=== PATIENT | male | born 1940 | race Caucasian/White ===

== ENCOUNTER → 2017-02-10 | Outpatient (CLI) | payer OTHER, BC | END | disposition home or self-care (01) | LOC: C.LABSPEC 13:11 | PROVIDERS: ATTEND Family Medicine | DX: R39.15 Urgency of urination (principal) ==

== ENCOUNTER 2019-01-14 13:42 | Inpatient (IN) ==
[2019-01-14 14:23] LABS: Basophils # (auto) 0.01 K/uL (0-0.2); Basophils % (auto) 0.1 %; Eosinophils # (auto) 0.04 K/uL (0-0.5); Eosinophils % (auto) 0.5 %; Hemoglobin 13.8 g/dL (14.0-18.0); Immature Granulocytes # (auto) 0.06 K/uL (0.00-0.02); Immature Granulocytes % (auto) 0.7 %; Lymphocytes # (auto) 1.26 K/uL (1.2-3.4); Lymphocytes % (auto) 15.7 %; Mean Corpuscular Hemoglobin 30.7 pg (25-34); Mean Corpuscular Hgb Conc 33.7 g/dL (32-36); Mean Corpuscular Volume 91.3 fL (80-100); Mean Platelet Volume 10.6 fL (7.4-10.4); Monocytes # (auto) 1.39 K/uL (0.11-0.59); Monocytes % (auto) 17.3 %; Neutrophils # (auto) 5.29 K/uL (1.4-6.5); Neutrophils % (auto) 65.7 %; Platelet Count 139 K/uL (130-400); RDW Coefficient of Variation 12.8 % (11.5-14.5); Red Blood Count 4.49 M/uL (4.7-6.1); White Blood Count 8.05 K/uL (4.8-10.8)
[2019-01-14 14:44] LABS: Albumin Level 3.3 gm/dl (3.4-5.0); BUN Creatinine Ratio 11.4 (10-20); Calcium 9.1 mg/dl (8.5-10.1); Creatinine Clr Calc Pharmacy 30.6 ml/min; Est GFR (African American) 33.4; Est GFR (Non-African American) 28.8; Potassium 4.4 mmol/L (3.5-5.1)
[2019-01-14 14:47] LABS: Albumin Globulin Ratio 0.8 (0.9-2); Bilirubin,Total 0.6 mg/dl (0.2-1); Globulin 4.2 gm/dl (2.5-4.0); Total Protein 7.5 gm/dl (6.4-8.2)
[2019-01-14 15:05] LABS: Appearance Urine Cloudy (Clear); Bacteria Urine Automated Negative (Negative); Bilirubin Urine Negative (Negative); Blood Urine 2+ (Negative); Color Urine Yellow; Epithelial Cell Urine Auto >30 /lpf (0-5); Glucose Urine UA Trace (Negative); Ketones Urine Negative (Negative); Leukocyte Esterase Urine 1+ (Negative); Nitrite Urine Negative (Negative); Protein Urine Trace (Negative); RBC Urine Automated 0-4 /hpf (0-4); Specific Gravity Urine 1.021 (1.000-1.030); Urobilinogen Urine Negative (Negative)
--- NOTE | 2019-01-14 16:02 | CT Scan Report ---
CT SCAN OF THE ABDOMEN AND PELVIS WITHOUT IV CONTRAST CLINICAL HISTORY: Left lower quadrant abdominal pain. COMPARISON STUDY: No priors. TECHNIQUE: CT scan of the abdomen and pelvis is performed from the lung bases to the proximal femora. Images are reviewed in the axial, sagittal, and coronal planes. IV contrast was not administered for this examination as per the referring clinician. A dose lowering technique was utilized adhering to the principles of ALARA. CT DOSE: 829.12 mGycm FINDINGS: Lung bases: The heart is normal in size and without pericardial effusion. There are coronary artery c alcifications. A calcified granuloma is noted at the right lung base. The lung bases are otherwise cl ear noting dependent atelectasis. There is a small hiatal hernia. Liver: The unenhanced liver is normal in size, contour, and attenuation. There is no intrahepatic alanna iary ductal dilatation. A subcentimeter hypodensity in the right lobe seen on image #117 and likely r epresents a cyst but is too small for definitive characterization. Gallbladder: Unremarkable. Spleen: Normal in size and attenuation. Pancreas: The unenhanced pancreas is moderately atrophic and grossly unremarkable. Adrenal glands: Unremarkable. Kidneys: The unenhanced kidneys demonstrate cortical atrophy. There are 4 obstructing calculus identi fied within the mid left ureter at the level of L4, best seen on image #221. The largest 2 stones eac h measure 11 mm. These cause moderate to severe left hydroureteronephrosis. There are least 2 nonobs tructing calculi in the lower pole of the left kidney which measure up to 8mm. There are 3.1 and 2.3 cm nonobstructing calculi present in the right kidney. There are at least 3 additional subcentimeter right renal calculi. There is no right-sided hydronephrosis. Parapelvic cysts are suggested on the ri ght. A 6 cm exophytic cyst arises from the lower pole of the left kidney. Abdominal vasculature: The abdominal aorta is normal in course and caliber noting moderate to advance d atherosclerotic calcification. Bowel: There is moderate colonic diverticulosis without CT evidence of acute diverticulitis. Colonic fecal retention is observed. No bowel obstruction is seen. The appendix is well-visualized and estella l. Peritoneum: There is no intraperitoneal free air or abdominal ascites. A calcified lymph node is sugg ested in the left lower quadrant image #304. Lymphadenopathy: None. Pelvic viscera: The the prostate gland is mildly enlarged and heterogeneous. The bladder wall is thic kened and trabeculated suggesting chronic outlet obstruction. A large irregular bladder calculus mayra ures 3.7 x 3.5 cm Skeletal structures: The skeletal structures are osteopenic. There is moderate lumbosacral spondylosi s. Degenerative change is noted in the sacroiliac joints. No lytic or blastic lesions are seen. IMPRESSION: 1. There are at least 4 obstructing calculi in the mid left ureter (the largest 2 stones each measure 11 mm) at the level of L4. This causes moderate to severe left hydroureteronephrosis. 2. There are additional nonobstructing calculi seen bilaterally, with staghorn calculi noted on the r ight. 3. Moderate colonic diverticulosis without CT evidence of acute diverticulitis. 4. There is a large bladder calculus. 5. Additional findings as above. Electronically signed by: Leonardo Patterson M.D. 01/14/2019 4:01 PM
[2019-01-14] MEDS ORDERED: SODIUM CHLORIDE 0.9% 1000ML 1,000 ML IV SCH (16:45)
[2019-01-14] MEDS ORDERED: OXYCODONE HCL IR 5 MG TAB (IMMEDIATE RELEASE) PO STA (17:31)
--- NOTE | 2019-01-14 17:43 | History & Physical Report ---
Date of Service January 14, 2019 Assessment & Plan (1) Hydronephrosis concurrent with and due to calculi of kidney and ureter: (2) Acute renal failure: Pt is 78 y/o M with PMH kidney stones and lithotripsy, DM II, GERD, stroke presented to ER with c/o intermittent lower abdominal pain x 2 months Pt afebrile, P: 94, BP: 124/72, 94% on RA. No leukocytosis. BUN: 25, Cr: 2.1, (baseline Cr: 1.2), GFR: 28. UA consistent with possible UTI -Urine cultures pending -Blood cultures pending -Rocephin -IVF -NPO midnight -Dose oxycodone now -Morphine prn pain -Avoid NSAIDs and other nephrotoxic agents -Monitor renal functions -Urology consult - ER consulted and plan to take pt to OR tomorrow morning -CBC, BMP in am (3) Diabetes mellitus, type II: A1c: 6.9 in 10/2018 -Hold metformin -Novolog sliding scale per protocol -Monitor BSGs (4) GERD (gastroesophageal reflux disease): -Continue PPI (5) Stroke: -Continue aspirin post op DVT Prophylaxis -SCDs Full Code as per discussion with pt Follows with Dr Rolando Joseph for routine care Pt was seen and care coordinated with Dr Allen. See addendum History of Present Illness Chief Complaint: Abdominal pain Primary Care Provider: Nic Harley Pt is 78 y/o M with PMH kidney stones and lithotripsy, DM II, GERD, stroke presented to ER with c/o lower abdominal pain x 2 months. Pt c/o intermittent lower abdominal pain for past 2 months. States today was tired of the pain so came to be evaluated. Has been using 1 tab ibuprofen 2-3 times a week for the pain. Denies fever/chills, diaphoresis, N/V/D/C, COFFEY, dizziness, syncope, vision changes, neck pain, CP, SOB, orthopnea, palpitations, cough, sore throat, choking, otalgia, rhinorrhea, back pain, paresthesias, weakness, extremity weakness, extremity edema, rashes, dysuria, hematuria, urinary retention, u rinary frequency. Allergies Allergy/AdvReac Type Severity Reaction Status Date / Time lactose AdvReac Gastrointestinal Unverified 01/14/19 15:43 Upset Home Medications Home Medications Medication Instructions Recorded Confirmed Type aspirin 81 mg PO DAILY 01/14/19 01/14/19 History metformin 500 mg PO BIDM 01/14/19 01/14/19 History omeprazole 20 mg PO DAILY 01/14/19 01/14/19 History Past Med/Surg History Medical History Diverticulosis (Chronic) Kidney stones (Chronic) Stroke (Chronic) GERD (gastroesophageal reflux disease) (Chronic) Diabetes mellitus, type II (Chronic) Surgical History History of tonsillectomy and adenoidectomy (Chronic) Family History Father Colorectal cancer Social History Feels Safe at Home: Yes Smoking Status: Never smoker Hx Alcohol Use: No Hx Substance Use: No Review of Systems Review of Systems: All systems reviewed & are unremarkable except as noted in HPI & below Physical Exam Physical Exam: General: no distress, WDWN Head: normocephalic, atraumatic Eyes: PERRL, EOM's intact, conjunctiva non-injected, anicteric ENT: normal inspection external ears, nose, mucous membranes moist Neck: supple, trachea midline Lungs: clear, no respiratory distress, no wheezing/rhonchi/rales CV: RRR, no murmur, no pretibial edema Abd: normal BS, soft, + tenderness to RLQ, LLQ, suprapubic Ext: no cyanosis, no calf tenderness Neuro: A&O x 3, no focal deficits noted, normal affect Skin: warm, dry Results & Data Vital Signs (Past 12 Hours) Vital Signs Temp Pulse Pulse Resp BP BP Pulse Ox 01/14/19 16:00 94 H 21 124/72 94 01/14/19 14:50 91 H 22 132/73 96 01/14/19 13:46 37.3 C 100 H 18 125/68 99 Laboratory Results Short CBC 01/14/19 Range/Units 14:13 WBC 8.05 (4.8-10.8) K/uL Hgb 13.8 L (14.0-18.0) g/dL Hct 41.0 L (42-52) % Plt Count 139 (130-400) K/uL BMP 01/14/19 14:13 Sodium 137 Potassium 4.4 Chloride 106 Carbon Dioxide 25 BUN 25 H Creatinine 2.14 H Glucose 118 H Calcium 9.1 Liver Function 01/14/19 Range/Units 14:13 Total Bilirubin 0.6 (0.2-1) mg/dl AST 17 (15-37) U/L ALT 18 (12-78) U/L Alkaline Phosphatase 86 (45-117) U/L Albumin 3.3 L (3.4-5.0) gm/dl Urine 01/14/19 Range/Units 14:50 Urine Color Yellow Urine Appearance Cloudy A (Clear) Urine pH 5.0 (4.5-7.5) Ur Specific [place] 1.021 (1.000-1.030) Urine Protein Trace H (Negative) Urine Glucose (UA) Trace H (Negative) Diagnostic Findings CT ABD/PELVIS: IMPRESSION: 1. There are at least 4 obstructing calculi in the mid left ureter (the largest 2 stones each measure 11 mm) at the level of L4. This causes moderate to severe left hydroureteronephrosis. 2. There are additional nonobstructing calculi seen bilaterally, with staghorn calculi noted on the right. 3. Moderate colonic diverticulosis without CT evidence of acute diverticulitis. 4. There is a large bladder calculus. 5. Additional findings as above. ECG Rate (beats per minute): 95 Rhythm: sinus rhythm Findings: + 1st degree AV block Code Status & VTE Plan VTE Prophylaxis Plan VTE Prophylaxis will be ordered: Yes Supervising Physician Co-Signing Physician Notes I saw this patient with the physician programs assistant, I participated in the history, physical, review of systems, and physical exam. I reviewed the medications with the patient and the physician programs assistant and helped reconcile the medications. I helped take a detailed family and social history as well. I formulated the assessment and plan personally with the physician programs assistant and went over it with the patient. Physical Exam Gen-AAO x 3, NAD, Afebrile Head-NCAT, EOMI, PERRLA, Anicteric Sclera, No Posterior Pharyngeal Erythema Neck-Supple, No JVD, No Thyromegaly, No Masses, No LAD, No Bruits Lungs-Clear to Auscultation Bilaterally, No Rales, No Rhonchi, No Wheezing, No Crepitus Chest-No S4, +S1, +S2, No S3, No Murmurs, No Rubs, No Gallops, No Ectopy Abdomen-Soft, Bowel Sounds Present, Non Tender, Non Distended, No Hepatomegaly, No Splenomegaly, No Palpable Masses, No Rebound, No Rigidity, No Guarding Musculoskeletal-Full Range of Motion Bilaterally, No CVAT Extremities-No Cyanosis, No Clubbing, No Edema Nuero-Cranial Nerves II-XII grossly intact, Motor WNL, DTRs WNL, Strength WNL, Non Focal Psych-Normal Mood (1) Acute renal failure Acute renal failure type: unspecified Qualified Code(s): N17.9 - Acute kidney failure, unspecified
--- NOTE | 2019-01-14 17:57 | Emergency Department Note ---
Entered by Kamlesh Lux acting as a scribe for Reinaldo Hein MD ED Provider Note CHIEF COMPLAINT: Abdominal Pain HISTORY OF PRESENT ILLNESS: The patient is a 78 year old male who presents to the Emergency Room with complaints of waxing and waning abdominal pain over the past two months. The patient states he has diverticulosis, and he states that his PCP thinks that the patient's present abdominal pain stems from the patient's diverticulosis. The patient believes he may have diverticulitis. The patient rates the abdominal pain as a 4/10. The patient states the abdominal pain is not worsened with movement, bending over, or with coughing and sneezing. The of the patient notes that certain foods make the patient's abdominal pain worse, and the states that when the abdominal pain gets bad for the patient, the patient's face becomes pale and yellow. The patient also states his stomach feels bloated, and he notes he has been belching a lot lately. The patient also states that his urine flow has been good, but he states that when he has to go, he has to go quick. The patient also notes he has been urinating often. The patient reports that he was told trace amounts of blood was found in a urine sample he gave to his PCP on January 06. The patient notes his last colonoscopy was 2-5 years ago. Pt denies LOC, headache, fevers, chills, diaphoresis, visual changes, neck pain, chest pain, breathing difficulties, nausea, vomiting, back pain, melena, hematochezia, numbness, weakness, lymphadenopathy, rash, or other complaints. REVIEW OF SYSTEMS: See HPI for pertinent positives and negatives. A total of ten systems were reviewed and were otherwise negative. PMHx/PSHx: Diverticulosis Kidney Stone SOCIAL HISTORY: Patient lives at home. PHYSICAL EXAM: GENERAL: Awake, alert, well-appearing, in no distress HENT: Normocephalic, atraumatic. Oropharynx unremarkable. EYES: PERRL. Normal conjunctiva. Sclera non-icteric. NECK: Inspection normal. Non-tender. Supple. No nuchal rigidity. FROM. No masses. RESPIRATORY: Clear to auscultation. No wheezes. No rales. Normal respiratory effort. CARDIAC: Normal rate. Normal rhythm. No murmurs. No rubs. Extremities warm and well perfused. Pulses equal. No JVD. GI: Soft, non-distended. Mild right lower quadrant and moderate left lower quadrant tenderness to palpation. No rebound or guarding. No masses. RECTAL: Deferred. MUSCULOSKELETAL: Atraumatic. Chest examination reveals no tenderness. The back is symmetrical on inspection without obvious abnormality. There is no CVA tenderness to palpation. No joint edema. LOWER EXTREMITIES: Calves are equal size bilaterally and non-tender. No edema. No discoloration. NEURO: Normal sensorium. No sensory or motor deficits noted. SKIN: No rash or jaundice noted. EMERGENCY DEPARTMENT COURSE: 1417: Past medical records reviewed. The patient was evaluated in room A12B, and a complete history and physical examination were performed. 1637: I discussed the patient's case with Dr. Morillo-Urology. Dr. Morillo recom mended admission, hydration, preoperative evaluation, and he states he will take the patient to the OR tomorrow. 1643: I updated the patient on his case. 1649: I reviewed the patient's case with Jessica Forde-L[facility] Conti. [facility] the patient. MEDICAL DECISION MAKING: Prior records/ancillary studies reviewed. Triage Nursing notes reviewed and agree them. Additional history obtained from the family. The patient's history was concerning for flank and abdominal pain. Differential diagnosis: Etiologies such as renal colic, appendicitis, diverticulitis, mesenteric ischemia, aortic pathology, infections, inflammatory bowel disease, PUD, biliary pathology, UTI, as well as others were entertained. Physical examination findings: As above. ER treatment provided: Patient declined analgesia Normal saline hydration On reassessment the patient felt better. Diagnostic interpretation by me: The labs revealed an unremarkable CBC. Chemistry panel did reveal an elevated creatinine concerning for acute renal failure. Urinalysis revealed hematuria. There was no sign of UTI. Imaging studies: CT scan of pelvis was performed. The patient has multiple left ureteral stones. He has a bladder stone as well as a right renal stone. Consultation: A consultation was placed with Dr. Morillo of urology. He recommended having the patient come into the hospital, be hydrated, made n.p.o. after midnight and he will see the patient for operative treatment tomorrow. A consultation was placed with the hospitalist. The case was discussed and diagnostics were reviewed. The patient was evaluated in the ER for further treatment. IMPRESSION: Left sided abdominal pain Left ureterolithiasis Hydronephrosis Right nephrolithiasis Bladder calculus Acute renal failure PLAN: Being evaluated by hospitalist. The scribe's documentation has been prepared under my direction and personally reviewed by me in its entirety. I confirm that the note above accurately reflects all work, treatment, procedures, and medical decision making performed by me. Impression & Plan Left sided abdominal pain, Ureterolithiasis, Hydronephrosis, Right nephrolithiasis, Bladder calculus, Acute renal failure Past Med/Surg History Medical History Diverticulosis (Chronic) Kidney stones (Chronic) Stroke (Chronic) GERD (gastroesophageal reflux disease) (Chronic) Diabetes mellitus, type II (Chronic) Surgical History History of tonsillectomy and adenoidectomy (Chronic) Family History Father Colorectal cancer Social History Feels Safe at Home: Yes Smoking Status: Never smoker Hx Alcohol Use: No Hx Substance Use: No Results & Data Vital Signs Vital Signs - 24 hr 01/14/19 13:46 01/14/19 14:50 01/14/19 16:00 Temperature 37.3 C Temperature Source Oral Sepsis Recent Fever Within 48 Hours No Sepsis New/Unexplained Change in Mental Status No Sepsis Action Taken by Nursing No Action Required Pulse Rate 100 H Pulse Rate [Left Finger] 91 H 94 H Respiratory Rate 18 22 21 Respiratory Effort / Characteristics Non-Labored Spontaneous Respiratory Depth Normal Normal Respiratory Pattern Regular Blood Pressure 125/68 Blood Pressure [Left Arm] 132/73 124/72 Blood Pressure Mean 87 Blood Pressure Mean [Left Arm] 92 89 Blood Pressure Position [Left Arm] Lying Pulse Oximetry 99 96 94 Oxygen Delivery Method Room Air Room Air Room Air Home Medications Current Medication List: was personally reviewed by me Laboratory Data Attestation: I reviewed the patient's lab results. Result diagrams: 01/14/19 14:13 01/14/19 14:13 Lab Results 01/14/19 01/14/19 01/14/19 Range/Units 14:13 14:13 14:50 WBC 8.05 (4.8-10.8) K/uL RBC 4.49 L (4.7-6.1) M/uL Hgb 13.8 L (14.0-18.0) g/dL Hct 41.0 L (42-52) % MCV 91.3 (80-100) fL MCH 30.7 (25-34) pg MCHC 33.7 (32-36) g/dL RDW Std Deviation 43.0 (36.4-46.3) fL RDW Coeff of Opal 12.8 (11.5-14.5) % Plt Count 139 (130-400) K/uL MPV 10.6 H (7.4-10.4) fL Immature Gran % (Auto) 0.7 % Neut % (Auto) 65.7 % Lymph % (Auto) 15.7 % [place] % (Auto) 17.3 % Eos % (Auto) 0.5 % Baso % (Auto) 0.1 % Immature Gran # (Auto) 0.06 H (0.00-0.02) K/uL Neut # (Auto) 5.29 (1.4-6.5) K/uL Lymph # (Auto) 1.26 (1.2-3.4) K/uL [place] # (Auto) 1.39 H (0.11-0.59) K/uL Eos # (Auto) 0.04 (0-0.5) K/uL Baso # (Auto) 0.01 (0-0.2) K/uL Sodium 137 (136-145) mmol/L Potassium 4.4 (3.5-5.1) mmol/L Chloride 106 (98-107) mmol/L Carbon Dioxide 25 (21-32) mmol/L Anion Gap 6.0 (3-11) BUN 25 H (7-18) mg/dl Creatinine 2.14 H (0.6-1.4) mg/dl Est Cr Clr Drug Dosing 30.6 ml/min Est GFR ( Amer) 33.4 Est GFR (Non-Af Amer) 28.8 BUN/Creatinine Ratio 11.4 (10-20) Glucose 118 H (70-99) mg/dl Calcium 9.1 (8.5-10.1) mg/dl Total Bilirubin 0.6 (0.2-1) mg/dl AST 17 (15-37) U/L ALT 18 (12-78) U/L Alkaline Phosphatase 86 (45-117) U/L Total Protein 7.5 (6.4-8.2) gm/dl Albumin 3.3 L (3.4-5.0) gm/dl Globulin 4.2 H (2.5-4.0) gm/dl Albumin/Globulin Ratio 0.8 L (0.9-2) Lipase 139 (73-393) U/L Urine Color Yellow Urine Appearance Cloudy A (Clear) Urine pH 5.0 (4.5-7.5) Ur Specific [place] 1.021 (1.000-1.030) Urine Protein Trace H (Negative) Urine Glucose (UA) Trace H (Negative) Urine Ketones Negative (Negative) Urine Blood 2+ H (Negative) Urine Nitrite Negative (Negative) Urine Bilirubin Negative (Negative) Urine Urobilinogen Negative (Negative) Ur Leukocyte Esterase 1+ H (Negative) Urine WBC (Auto) 10-30 H (0-5) /hpf Urine RBC (Auto) 0-4 (0-4) /hpf U Hyaline Cast (Auto) 1-5 (0-5) /lpf U Epithel Cells (Auto) >30 H (0-5) /lpf Urine Bacteria (Auto) Negative (Negative) Ur Renal Epithelial Cell 5-10 H (0-5) /lpf Administered Medications Sodium Chloride (Nss 1000ml) 1,000 mls @ 125 mls/hr IV .Q8H KATELYNN Stop: 02/13/19 16:44 Last Admin: 01/14/19 16:44 Dose: 125 mls/hr Documented by: [id number] Imaging Data Radiologist's Impression: Radiology results as stated below per my review and the radiologist's interpretation: CT SCAN OF THE ABDOMEN AND PELVIS WITHOUT IV CONTRAST CLINICAL HISTORY: Left lower quadrant abdominal pain. COMPARISON STUDY: No priors. TECHNIQUE: CT scan of the abdomen and pelvis is performed from the lung bases to the proximal femora. Images are reviewed in the axial, sagittal, and coronal planes. IV contrast was not administered for this examination as per the referring clinician. A dose lowering technique was utilized adhering to the principles of ALARA. CT DOSE: 829.12 mGycm FINDINGS: Lung bases: The heart is normal in size and without pericardial effusion. There are coronary artery calcifications. A calcified granuloma is noted at the right lung base. The lung bases are otherwise clear noting dependent atelectasis. There is a small hiatal hernia. Liver: The unenhanced liver is normal in size, contour, and attenuation. There i s no intrahepatic biliary ductal dilatation. A subcentimeter hypodensity in the right lobe seen on image #117 and likely represents a cyst but is too small for definitive characterization. Gallbladder: Unremarkable. Spleen: Normal in size and attenuation. Pancreas: The unenhanced pancreas is moderately atrophic and grossly unremarkable. Adrenal glands: Unremarkable. Kidneys: The unenhanced kidneys demonstrate cortical atrophy. There are 4 obstructing calculus identified within the mid left ureter at the level of L4, best seen on image #221. The largest 2 stones each measure 11 mm. These cause moderate to severe left hydroureteronephrosis. There are least 2 nonobstructing calculi in the lower pole of the left kidney which measure up to 8mm. There are 3.1 and 2.3 cm nonobstructing calculi present in the right kidney. There are at least 3 additional subcentimeter right renal calculi. There is no right-sided hydronephrosis. Parapelvic cysts are suggested on the right. A 6 cm exophytic cyst arises from the lower pole of the left kidney. Abdominal vasculature: The abdominal aorta is normal in course and caliber noting moderate to advanced atherosclerotic calcification. Bowel: There is moderate colonic diverticulosis without CT evidence of acute diverticulitis. Colonic fecal retention is observed. No bowel obstruction is seen. The appendix is well-visualized and normal. Peritoneum: There is no intraperitoneal free air or abdominal ascites. A calcified lymph node is suggested in the left lower quadrant image #304. Lymphadenopathy: None. Pelvic viscera: The the prostate gland is mildly enlarged and heterogeneous. The bladder wall is thickened and trabeculated suggesting chronic outlet obstruction. A large irregular bladder calculus measures 3.7 x 3.5 cm Skeletal structures: The skeletal structures are osteopenic. There is moderate lumbosacral spondylosis. Degenerative change is noted in the sacroiliac joints. No lytic or blastic lesions are seen. IMPRESSION: 1. There are at least 4 obstructing calculi in the mid left ureter (the largest 2 stones each measure 11 mm) at the level of L4. This causes moderate to severe left hydroureteronephrosis. 2. There are additional nonobstructing calculi seen bilaterally, with staghorn calculi noted on the right. 3. Moderate colonic diverticulosis without CT evidence of acute diverticulitis. 4. There is a large bladder calculus. 5. Additional findings as above. Electronically signed by: Leonardo Patterson M.D. 01/14/2019 4:01 PM ECG Data Attestation: I personally reviewed and interpreted this ECG as follows: Indication: abdominal pain Rate (beats per minute): 95 Rhythm: sinus rhythm Findings: + 1st degree AV block; no PAC, no PVC, no ST depression and no ST elevation Blood Pressure Blood Pressure Findings: Elevated blood pressure Blood Pressure Disposition: elevated BP felt to be situational Discharge Plan Visit Data Chief Complaint: Abdominal Pain Stated Complaint: WEIGHT LOSS, LOWER ABDOMINAL PAIN ED Provider: Reinaldo Hein Discharge Problem: Left sided abdominal pain, Ureterolithiasis, Hydronephrosis, Right nephrolithiasis, Bladder calculus, Acute renal failure Patient Disposition: Being Evaluated by Hospitalist Forms Stand Alone Forms: Call Back Authorization, [facility] Prescriptions Prescriptions: No Action omeprazole 20 mg capsule,delayed release(DR/EC) 20 mg PO DAILY RF: 0 metformin 500 mg tablet extended release 24 hr 500 mg PO BIDM RF: 0 aspirin 81 mg Tablet,Delayed Release (Dr/Ec) 81 mg PO DAILY RF: 0 Referrals Referrals: Nic Harley DO [Primary Care Provider] - Discharge Problem: Hydronephrosis Qualifiers: Hydronephrosis type: unspecified Qualified Code(s): N13.30 - Unspecified hydronephrosis Acute renal failure Qualifiers: Acute renal failure type: unspecified Qualified Code(s): N17.9 - Acute kidney failure, unspecified The scribe's documentation has been prepared under my direction and personally reviewed by me in its entirety. I confirm that the note above accurately reflects all work, treatment, procedures, and medical decision making performed by me.
[2019-01-14] MEDS ORDERED: GLUCOSE 40% GEL 15 GM TUBE PO PRN (19:03)
[2019-01-14] MEDS ORDERED: DEXTROSE 50% 50 ML SYRINGE IV PRN (19:03)
[2019-01-14] MEDS ORDERED: TAMSULOSIN HCL 0.4 MG CAP PO ONE (19:03)
[2019-01-14] MEDS ORDERED: CARBOHYDRATES FOR HYPOGLYCEMIA PO PRN (19:03)
[2019-01-14] MEDS ORDERED: ONDANSETRON INJ 2 MG/ML 2 ML VIAL IV PRN (19:03)
[2019-01-14] MEDS ORDERED: GLUCOSE 10 TABS/TUBE PO PRN (19:03)
[2019-01-14] MEDS ORDERED: GLUCAGON FOR INJ 1 MG VIAL SQ PRN (19:03)
[2019-01-14] MEDS ORDERED: MoRPHine SULFATE 2 MG/ML CARP IV PRN (19:03)
[2019-01-14] MEDS ORDERED: SODIUM CHLORIDE 0.9% 500 ML IV SCH (19:03)
[2019-01-14] MEDS: cefTRIAXone SODIUM 2,000 MG in DEXTROSE 5% 50 ML IV SCH (20:19)
[2019-01-14] MEDS ORDERED: INSULIN ASPART 100 UNITS/ML 3 ML PEN SC SCH (21:00)
[2019-01-14] MEDS ORDERED: HYDROmorphone INJ 0.5 MG/0.5 ML SYR IV PRN (21:56)
[2019-01-14] MEDS: OXYCODONE HCL IR 5 MG TAB (IMMEDIATE RELEASE) PO PRN (23:14)
[2019-01-14] MEDS ORDERED: Nursing to Pharmacy Communication ONE (23:58)
[2019-01-15] MEDS ORDERED: D5W AND NSS 1,000 ML IV SCH
[2019-01-15 05:24] LABS: Hematocrit (blood only) 35.1 % (42-52); Mean Corpuscular Hemoglobin 30.6 pg (25-34); Mean Corpuscular Hgb Conc 34.2 g/dL (32-36); Mean Corpuscular Volume 89.5 fL (80-100); Mean Platelet Volume 9.9 fL (7.4-10.4); Platelet Count 118 K/uL (130-400); RDW Coefficient of Variation 12.7 % (11.5-14.5); RDW Standard Deviation 41.1 fL (36.4-46.3); Red Blood Count 3.92 M/uL (4.7-6.1); White Blood Count 7.85 K/uL (4.8-10.8)
[2019-01-15 05:44] LABS: BUN Creatinine Ratio 10.6 (10-20); Calcium 8.3 mg/dl (8.5-10.1); Creatinine Clr Calc Pharmacy 28.6 ml/min; Est GFR (African American) 30.8; Est GFR (Non-African American) 26.5; Potassium 4.9 mmol/L (3.5-5.1)
[2019-01-15] MEDS ORDERED: INSULIN ASPART 100 UNITS/ML 3 ML PEN SC SCH (06:00)
[2019-01-15] MEDS: OXYCODONE HCL IR 5 MG TAB (IMMEDIATE RELEASE) PO PRN (06:06)
[2019-01-15] MEDS ORDERED: CIPROFLOXACIN / D5W 200 MG/100 ML BAG IV SCH (07:00)
[2019-01-15 07:02] LABS: Partial Thromboplastin Ratio 1.1; Partial Thromboplastin Time 30.2 Seconds (21.0-31.0); Prothrombin Time 10.7 Seconds (9.0-12.0)
--- NOTE | 2019-01-15 07:14 | Anesthesiology Consultation ---
Date of Service January 15, 2019 Assessment & Plan (1) Encounter for pre-operative examination: Chart Review Chart Review: Acceptable Risk for Surgery History Surgery Operation Date: 01/15/19 07:30 Proposed Procedures p Cystoscopy, Laser Lithotripsy, Left Ureteral Stent Placement - David Morillo MD Height/Weight Height: 5 ft 8 in Weight: 84.8 kg Allergies Allergy/AdvReac Type Severity Reaction Status Date / Time lactose AdvReac Gastrointestinal Unverified 01/14/19 15:43 Upset Medications Home Medications Medication Instructions Recorded Confirmed Last Taken aspirin 81 mg PO DAILY 01/14/19 01/14/19 01/14/19 metformin 500 mg PO BIDM 01/14/19 01/14/19 01/14/19 omeprazole 20 mg PO DAILY 01/14/19 01/14/19 01/14/19 Active Medications Generic Name Dose Route Start Last Admin Trade Name Freq PRN Reason Stop Dose Admin Dextrose/Sodium Chloride 1,000 mls @ 80 mls/hr 01/15/19 00:00 01/15/19 00:16 D5w And Nss IV 01/15/19 12:29 80 mls/hr .[id number] KATELYNN Administration Ceftriaxone Sodium 2,000 mg/ 70 mls @ 100 mls/hr 01/14/19 20:00 01/14/19 21:01 Dextrose IV 01/24/19 19:59 Infused DAILY@2000 [facility] Infusion Protocol Insulin Aspart 0 units 01/15/19 06:00 01/15/19 06:07 Novolog Flexpen SC 02/14/19 05:59 Not Given Q6 KATELYNN Oxycodone HCl 5 mg 01/14/19 21:58 01/15/19 06:06 Roxicodone Immediate Rel PO 01/28/19 21:57 5 mg Q4H PRN Administration Pain NPO Date Last Intake of Fluids: 01/14/19 Time Last Intake of Fluids: 23:59 Date Last Intake of Solids: 01/14/19 Time Last Intake of Solids: 23:59 Past Medical History Medical History Diverticulosis (Chronic) Kidney stones (Chronic) Stroke (Chronic) GERD (gastroesophageal reflux disease) (Chronic) Diabetes mellitus, type II (Chronic) Anemia Renal failure Thrombocytopenia Past Family History Family History Father Colorectal cancer Past Surgical History Surgical History History of tonsillectomy and adenoidectomy (Chronic) Social History Smoking Status: Never smoker Hx Alcohol Use: No Hx Substance Use: No Physical Exam Vital Signs Last Vital Signs Temp 36.7 C 01/15/19 06:56 Pulse 102 H 01/15/19 06:56 Resp 16 01/15/19 06:56 BP 137/74 01/15/19 06:56 Pulse Ox 95 01/15/19 06:56 Testing Laboratory Results 01/15/19 05:04 01/15/19 05:04 PT 10.7 Seconds (9.0-12.0) 01/15/19 06:36 INR 1.0 (0.9-1.1) 01/15/19 06:36 APTT 30.2 Seconds (21.0-31.0) 01/15/19 06:36 Urine Color Yellow 01/14/19 14:50 Urine Appearance Cloudy (Clear) A 01/14/19 14:50 Urine pH 5.0 (4.5-7.5) 01/14/19 14:50 Ur Specific [place] 1.021 (1.000-1.030) 01/14/19 14:50 Urine Protein Trace (Negative) H 01/14/19 14:50 Urine Glucose (UA) Trace (Negative) H 01/14/19 14:50 Urine Ketones Negative (Negative) 01/14/19 14:50 Urine Nitrite Negative (Negative) 01/14/19 14:50 Ur Leukocyte Esterase 1+ (Negative) H 01/14/19 14:50 Urine WBC (Auto) 10-30 /hpf (0-5) H 01/14/19 14:50 Urine RBC (Auto) 0-4 /hpf (0-4) 01/14/19 14:50 U Hyaline Cast (Auto) 1-5 /lpf (0-5) 01/14/19 14:50 U Epithel Cells (Auto) >30 /lpf (0-5) H 01/14/19 14:50 Urine Bacteria (Auto) Negative (Negative) 01/14/19 14:50 01/15/19 01/14/19 05:56 20:43 POC Glucose 155 H 180 H Electrocardiogram Date: 01/14/19 Findings: + NSR @ (95 first degree AV block)
--- NOTE | 2019-01-15 07:15 | Urology Consultation ---
Date of Consultation January 15, 2019 Assessment & Plan (1) Hydronephrosis concurrent with and due to calculi of kidney and ureter: A/P 78 yo male with R partial staghorn, L ureteral stones and hydro, bladder stone. Findings reviewed with patient. As noted, he will need a likely minimum of 3 surgeries - acutely, we will proceed with a cystoscopy, left retrograde pyelography and stent placement (for likely source of renal insufficiency), will see if we can perform cystolithopaxy today as well. Next, on outpatient coordination will proceed with L uscope to clear L kidney. Finally, will need R PCNL by Dr. Berg for his staghorn calculus. [employer] parts consultant to OR today, risks and benefits reviewed, will proceed with first procedure as noted acutely. Patient vocalizes understanding of the treatment plan, wishes to proceed,consent obtained. (2) Acute renal failure: History of Present Illness Reason for Consultation: Stone disease, renal failure. Attending Physician: Bc Araya MD History of Present Illness 78 yo male, new to our practice with a history of stone disease treated in [place] > 5 years ago. He was aware of a residual R renal stone, was being observed. He was recently referred to Dr. Bernabe in [facility] for evaluation for his stones but presents acutely with abdominal pain. His CT images are personally reviewed - large partial staghorn, nonobstructive in R kidney, L ureteral stones with hydro and 3 cm bladder stone, likely the source of his urgency and SP pain. His Cr is also noted to be elevated, baseline unclear. Patient is pleasant but a poor historian. He is NPO this AM for possible intervention. consult requested for assistance. Denies retention or excessively bothersome LUTS. Allergies Allergy/AdvReac Type Severity Reaction Status Date / Time lactose AdvReac Gastrointestinal Unverified 01/14/19 15:43 Upset Home Medications Home Medications Medication Instructions Recorded Confirmed Type aspirin 81 mg PO DAILY 01/14/19 01/14/19 History metformin 500 mg PO BIDM 01/14/19 01/14/19 History omeprazole 20 mg PO DAILY 01/14/19 01/14/19 History Patient History Medical History Diverticulosis (Chronic) Kidney stones (Chronic) Stroke (Chronic) GERD (gastroesophageal reflux disease) (Chronic) Diabetes mellitus, type II (Chronic) Renal failure Surgical History History of tonsillectomy and adenoidectomy (Chronic) Family History Father Colorectal cancer Social History Preferred Language: Thai Communication Ability: Effective General Farm Hand Required: No Beliefs That Will Affect Care: None Current Living Situation: Spouse Other Information That Helps Us Care for You: No Feels Safe at Home: Yes Safety Concerns: Feels Safe At This Time Smoking Status: Never smoker Hx Alcohol Use: No Hx Substance Use: No Review of Systems Constitutional: no fever and no chills Eyes: no diplopia Ear, Nose, Mouth, Throat: no ear trauma Respiratory: no hemoptysis Cardiovascular: no chest pain Gastrointestinal: + abdominal pain Genitourinary: + urinary frequency Musculoskeletal: + back pain; no muscle weakness Integumentary: no acne and no boil Neurologic: no paralysis Psychiatric: no hopelessness Hematologic / Lymphatic: no lymphadenopathy Allergy / Immunological: no tongue swelling Physical Exam Constitutional: + obese; no acute distress Eyes: eyes not dysmorphic ENMT: Ears: no external ear abnormality Neck: trachea midline; no anterior neck swelling Respiratory: no respiratory distress and does not use accessory muscles Cardiovascular: Vessels: radial pulses present Gastrointestinal (Abdomen): Inspection/Auscultation: abdomen not distended Percussion/Palpation: abdomen soft; abdomen nontender Musculoskeletal: Head/Neck/Chest: normocephalic and neck supple Skin: normal turgor Neurologic: awake; not obtunded Psychiatric: Orientation: oriented x 3 Lymphatic: no lymphadenopathy Results & Data Vital Signs (Past 12 Hours) Vital Signs Temp Pulse Pulse Resp BP Pulse Ox 01/15/19 06:56 36.7 C 102 H 16 137/74 95 01/14/19 23:03 36.8 C 87 18 150/73 H 97 01/14/19 19:16 37.3 C 99 H 18 132/73 98 Laboratory Results Laboratory Results - last 48 hr 01/14/19 01/14/19 01/14/19 14:13 14:13 14:50 WBC 8.05 RBC 4.49 L Hgb 13.8 L Hct 41.0 L MCV 91.3 MCH 30.7 MCHC 33.7 RDW Std Deviation 43.0 RDW Coeff of Opal 12.8 Plt Count 139 MPV 10.6 H Immature Gran % (Auto) 0.7 Neut % (Auto) 65.7 Lymph % (Auto) 15.7 [place] % (Auto) 17.3 Eos % (Auto) 0.5 Baso % (Auto) 0.1 Immature Gran # (Auto) 0.06 H Neut # (Auto) 5.29 Lymph # (Auto) 1.26 [place] # (Auto) 1.39 H Eos # (Auto) 0.04 Baso # (Auto) 0.01 PT INR APTT PTT Ratio Sodium 137 Potassium 4.4 Chloride 106 Carbon Dioxide 25 Anion Gap 6.0 BUN 25 H Creatinine 2.14 H Est Cr Clr Drug Dosing 30.6 Est GFR ( Amer) 33.4 Est GFR (Non-Af Amer) 28.8 BUN/Creatinine Ratio 11.4 Glucose 118 H POC Glucose Calcium 9.1 Total Bilirubin 0.6 AST 17 ALT 18 Alkaline Phosphatase 86 Total Protein 7.5 Albumin 3.3 L Globulin 4.2 H Albumin/Globulin Ratio 0.8 L Lipase 139 Urine Color Yellow Urine Appearance Cloudy A Urine pH 5.0 Ur Specific [place] 1.021 Urine Protein Trace H Urine Glucose (UA) Trace H Urine Ketones Negative Urine Blood 2+ H Urine Nitrite Negative Urine Bilirubin Negative Urine Urobilinogen Negative Ur Leukocyte Esterase 1+ H Urine WBC (Auto) 10-30 H Urine RBC (Auto) 0-4 U Hyaline Cast (Auto) 1-5 U Epithel Cells (Auto) >30 H Urine Bacteria (Auto) Negative Ur Renal Epithelial Cell 5-10 H 01/14/19 01/15/19 01/15/19 20:43 05:04 05:04 WBC 7.85 RBC 3.92 L Hgb 12.0 L Hct 35.1 L MCV 89.5 MCH 30.6 MCHC 34.2 RDW Std Deviation 41.1 RDW Coeff of Opal 12.7 Plt Count 118 L MPV 9.9 Immature Gran % (Auto) Neut % (Auto) Lymph % (Auto) [place] % (Auto) Eos % (Auto) Baso % (Auto) Immature Gran # (Auto) Neut # (Auto) Lymph # (Auto) [place] # (Auto) Eos # (Auto) Baso # (Auto) PT Cancelled INR Cancelled APTT Cancelled PTT Ratio Cancelled Sodium Potassium Chloride Carbon Dioxide Anion Gap BUN Creatinine Est Cr Clr Drug Dosing Est GFR ( Amer) Est GFR (Non-Af Amer) BUN/Creatinine Ratio Glucose POC Glucose 180 H Calcium Total Bilirubin AST ALT Alkaline Phosphatase Total Protein Albumin Globulin Albumin/Globulin Ratio Lipase Urine Color Urine Appearance Urine pH Ur Specific [place] Urine Protein Urine Glucose (UA) Urine Ketones Urine Blood Urine Nitrite Urine Bilirubin Urine Urobilinogen Ur Leukocyte Esterase Urine WBC (Auto) Urine RBC (Auto) U Hyaline Cast (Auto) U Epithel Cells (Auto) Urine Bacteria (Auto) Ur Renal Epithelial Cell 01/15/19 01/15/19 01/15/19 05:04 05:56 06:36 WBC RBC Hgb Hct MCV MCH MCHC RDW Std Deviation RDW Coeff of [place] Plt Count MPV Immature Gran % (Auto) Neut % (Auto) Lymph % (Auto) [place] % (Auto) Eos % (Auto) Baso % (Auto) Immature Gran # (Auto) Neut # (Auto) Lymph # (Auto) [place] # (Auto) Eos # (Auto) Baso # (Auto) PT 10.7 INR 1.0 APTT 30.2 PTT Ratio 1.1 Sodium 136 Potassium 4.9 Chloride 107 Carbon Dioxide 24 Anion Gap 5.0 BUN 24 H Creatinine 2.29 H Est Cr Clr Drug Dosing 28.6 Est GFR ( Amer) 30.8 Est GFR (Non-Af Amer) 26.5 BUN/Creatinine Ratio 10.6 Glucose 161 H POC Glucose 155 H Calcium 8.3 L Total Bilirubin AST ALT Alkaline Phosphatase Total Protein Albumin Globulin Albumin/Globulin Ratio Lipase Urine Color Urine Appearance Urine pH Ur Specific [place] Urine Protein Urine Glucose (UA) Urine Ketones Urine Blood Urine Nitrite Urine Bilirubin Urine Urobilinogen Ur Leukocyte Esterase Urine WBC (Auto) Urine RBC (Auto) U Hyaline Cast (Auto) U Epithel Cells (Auto) Urine Bacteria (Auto) Ur Renal Epithelial Cell PG Care Time/CCT Total # of Minutes Spent Total Time Spent with Patient: Total time spent is greater than 50% in coordination of care (as documented) at patient's floor/unit and/or counseling patient: (1) Acute renal failure Acute renal failure type: unspecified Qualified Code(s): N17.9 - Acute kidney failure, unspecified
[2019-01-15] MEDS ORDERED: fentaNYL citrate 100 MCG/2 ML VIAL IV PRN (07:17)
[2019-01-15] MEDS ORDERED: ATROPINE SULFATE 0.1 MG/ML 10ML SYR IV PRN (07:17)
[2019-01-15] MEDS ORDERED: ONDANSETRON INJ 2 MG/ML 2 ML VIAL IV PRN (07:17)
[2019-01-15] MEDS ORDERED: PROPOFOL IV EMULSION 10 MG/ML 20 ML VIAL IV ONE (07:23)
[2019-01-15] MEDS ORDERED: ONDANSETRON INJ 2 MG/ML 2 ML VIAL ONE (07:23)
[2019-01-15] MEDS ORDERED: DEXAMETHASONE SOD INJ 4 MG/ML VIAL ONE (07:23)
[2019-01-15] MEDS ORDERED: LIDOCAINE HCL 2% 2 ML VIAL/AMP(20MG/ML) INFIL ONE (07:23)
[2019-01-15] MEDS ORDERED: MIDAZOLAM HCL 1 MG/ML 2ML VIAL ONE (07:26)
[2019-01-15] MEDS ORDERED: fentaNYL citrate 100 MCG/2 ML VIAL ONE (07:26)
[2019-01-15] MEDS ORDERED: IOTHALAMATE MEGLUMINE II 17.2% 250 ML VIAL ONE (07:29)
[2019-01-15] MEDS ORDERED: BELLADONNA/OPIUM SUPP 60 MG SUPP PR ONE ×2 (08:11)
[2019-01-15] MEDS ORDERED: PHENAZOPYRIDINE HCL 100 MG TAB PO PRN (10:03)
--- NOTE | 2019-01-15 10:03 | Operative Report ---
PG Post Operative Report Pre & Post Diagnosis Operation Date: 01/15/19 07:30 Pre-Op Diagnosis: Right Renal Stone, Left Ureteral Stone, Bladder Stone, Renal Failure Post-Op Diagnosis: Right Renal Stone, Left Ureteral Stone, Bladder Stone, Renal Failure Anesthesia: General anesthesia with laryngeal mask. Drains left in place: 6 [place] multilength stent on the left-hand side, 22 [place] coud catheter with 10 cc of sterile water in the balloon. Findings: Bladder stone fragmented and removed, good stent position on the left- hand side after completion of case. EBL: 0 I identified the patient and participated in the time-out.: Yes Procedure Operation Date: 01/15/19 07:30 Actual Procedures p Cystoscopy, Left Retrograde Pylography, Laser Cystolithopaxy, Left Ureteral Stent Placement(Left) - David Morillo MD Brief history: Patient is a 78-year-old male with renal failure, left ureteral stones, right partial staghorn calculus and bladder stone. He is being brought to the operating room today for urgent left ureteral stent placement. We will attempt to address his bladder stone at the same time. Please see H&P for further details. He has been covered with cephalosporins by the primary service and ciprofloxacin intraoperatively. SCDs were used for DVT prophylaxis. Procedure: Patient was properly identified and brought into the operative suite after identification of appropriate consent in the chart. General anesthesia with laryngeal mask was initiated and patient was prepped and draped in the standard fashion for this procedure. Full timeout procedure was followed. 22 [place] rigid cystoscope was passed into the bladder under direct visualization bladder was surveyed in its entirety. This demonstrated a very large bladder stone and trabeculated and inflamed bladder. Lateral lobe hypertrophy of the prostate was appreciated. No intravesical tumors or papillary masses were noted. Left-sided ureteral orifice was addressed using an open-ended catheter and retrograde pyelography was performed. This demonstrated a relatively normal ureter up to the level of the proximal ureter where contrast proceeded pro ximally poorly due to obstruction from the patient's stone. Sensor tip wire was advanced up to the level of the left kidney and this was followed by a multilength 6 [place] stent with redundant coils being present both at the level of the kidney and within the bladder. Cystoscope was then removed and a 26 [place] resectoscope was introduced into the bladder under direct visualization using a visual obturator. 600 m laser fiber was passed via a standard bridge and fragmentation of the patient's bladder stone into smaller pieces was performed for approximately 2 hours. This resulted in a large number of small stones which were able to be flushed free throughout the case.'s were sent for both chemical analysis and culture. This was continued until no residual stone fragments were present within the bladder. No significant bladder injuries were appreciated with mild bladder inflammation due to lasering. After this was complete due to the length of the case and amount of stimulation of bladder a Farley catheter was left in place. 22 [place] coud catheter was placed with return of clear pink urine with 10 cc of sterile water in the balloon. This is placed to gravity drainage. Belladonna and opium suppositories provided for additional postoperative analgesia. Anesthesia was reversed and patient was transferred to the recovery room in stable condition. Follow-up CARE: Patient be discharged back up to the floor for further management per the primary service. Trial of void should be feasible tomorrow. Continue antibiotic coverage until cultures return. Care is discussed with the patient's family who vocalized good understanding of the findings and treatment plans Surgeon David Morillo MD Geomorphology Teacher None Estimated Blood Loss 0 Findings Consistent with Post-Op Diagnosis Specimens Bladder stones for chemical analysis and culture. Description of Procedure Cystoscopy, left retrograde pyelography, left ureteral stent placement, cystolitholopaxy of a large bladder stone. I attest to the content of the Intraoperative Record and any orders documented therein. Any exceptions are noted below.
--- NOTE | 2019-01-15 10:13 | Fluoroscopy Report ---
FL retrograde includes kub CLINICAL HISTORY: STENT PLACEMENT COMPARISON STUDY: CT of the abdomen and pelvis January 14, 2019. FLUOROSCOPY TIME: 46 seconds. FLUOROSCOPIC IMAGES: 4 FINDINGS: These images demonstrate a left retrograde exam with placement of a ureteral stent which is appropriately positioned. Calculus within the lower pole of the left kidney is suspected. The left u reteral calculus shown on CT is also likely visualized. IMPRESSION: Fluoroscopic images from left retrograde exam with ureteral stent insertion. Electronically signed by: Chris Black M.D. 01/15/2019 10:10 AM
--- NOTE | 2019-01-15 10:36 | Anesthesiology Progress Note ---
Date of Service January 15, 2019 Anesthesia Post Procedure Vital Signs Vital Signs: Temp Pulse Pulse Pulse Pulse Resp BP 01/15/19 10:25 101 H 16 01/15/19 10:15 109 H 16 01/15/19 10:06 36 C L 103 H 16 01/15/19 06:56 36.7 C 102 H 16 01/14/19 23:03 36.8 C 87 18 01/14/19 19:16 37.3 C 99 H 18 01/14/19 18:00 92 H 18 01/14/19 16:00 94 H 21 01/14/19 14:50 91 H 22 01/14/19 13:46 37.3 C 100 H 18 125/68 BP Pulse Ox 01/15/19 10:25 115/68 97 01/15/19 10:15 117/63 93 01/15/19 10:06 126/66 98 01/15/19 06:56 137/74 95 01/14/19 23:03 150/73 H 97 01/14/19 19:16 132/73 98 01/14/19 18:00 122/67 95 01/14/19 16:00 124/72 94 01/14/19 14:50 132/73 96 01/14/19 13:46 99 Pain Intensity Abdomen: Pain Intensity: 0 Transfer of Care Handoff Completed per policy Notes Mental Status: alert / awake / arousable Patient Amnestic to Procedure: Yes Nausea / Vomiting: adequately controlled Pain: adequately controlled Airway Patency, RR, SpO2: stable & adequate BP & HR: stable & adequate Hydration State: stable & adequate Anesthetic Complications: no major complications apparent
[2019-01-15] MEDS ORDERED: Nursing to Pharmacy Communication ONE (11:20)
[2019-01-15] MEDS: PANTOprazole 40 MG TAB PO SCH (12:05)
[2019-01-15] MEDS: INSULIN ASPART 100 UNITS/ML 3 ML PEN SC SCH ×3 (12:52→21:16)
[2019-01-15] MEDS: FINASTERIDE 5 MG TAB PO SCH (16:29)
--- NOTE | 2019-01-15 16:35 | Hospitalist Progress Note ---
Date of Service January 15, 2019 Assessment & Plan (1) Hydronephrosis concurrent with and due to calculi of kidney and ureter: Moderate to Severe Left Hydroureteronephrosis Present on admission with intermittent lower abdominal pain for the past few weeks History of kidney stones and lithotripsy CT showed at least 4 obstructing calculi in the mid left ureter (the largest 2 stones each measure 11 mm) at the level of L4. This causes moderate to severe left hydroureteronephrosis. There are additional nonobstructing calculi seen bilaterally, with staghorn calculi noted on the right. Urology on board S/P cystoscopy, Left Retrograde Pylography, Laser Cystolithopaxy, Left Ureteral Stent Placement(Left) performed today by Dr. Morillo Bladder stone fragmented and removed by urology this morning Continue IV Rocephin for now Follow up urine cx Continue flomax Continue Morphine, oxycodone and phenazopyridine prn Continue IVF Continue monitor closely (2) Acute renal failure: Due to moderate to Severe Left Hydroureteronephrosis Creatinine on admission 2.1 (Baseline creatinine btw 1.1 to 1.2) Creatinine 2.2 today Continue IVF Avoid nephrotoxic agents Monitor BMP (3) Diabetes mellitus, type II: A1c: 6.9 in 10/2018 Continue to hold metformin Novolog sliding scale per protocol Monitor BS (4) GERD (gastroesophageal reflux disease): Continue PPI (5) Stroke: Will resume aspirin in am DVT Prophylaxis SCD CODE STATUS Full Code Subjective Pt was seen and examined Lying in bed with no distress with family at bedside Pt said that he feels fine He said that he is not having any flank pain He said that he is only has a mild discomfort in his bladder Denies any chest pain, palpitation, dizziness and SOB Physical Exam Physical Exam: General- No acute distress Head- atraumatic Eyes- PERRL, EOMI, ENT- oropharynx clear Neck- supple, no JVD Lungs- clear to auscultation Heart- regular rhythm; no murmur Abdomen- normal bowel sounds, soft, nontender Extremities- no calf tenderness Neuro- alert, oriented x 3; PERRL, EOMI; no facial palsy; no dysarthria Skin- warm & dry Results & Data Vital Signs (Past 12 Hours) Vital Signs Temp Pulse Pulse Resp BP Pulse Ox 01/15/19 14:48 36.8 C 18 118/64 95 01/15/19 13:25 36.8 C 110 H 18 142/74 H 97 01/15/19 12:00 36.6 C 96 H 18 133/75 97 01/15/19 11:30 36.5 C 96 H 18 123/68 97 01/15/19 11:00 36.6 C 102 H 18 113/69 95 01/15/19 10:45 36.3 C L 100 H 16 119/65 95 01/15/19 10:35 36.3 C L 109 H 16 129/65 95 01/15/19 10:25 101 H 16 115/68 97 01/15/19 10:15 109 H 16 117/63 93 01/15/19 10:06 36 C L 103 H 16 126/66 98 01/15/19 06:56 36.7 C 102 H 16 137/74 95 (1) Acute renal failure Acute renal failure type: unspecified Qualified Code(s): N17.9 - Acute kidney failure, unspecified
[2019-01-15] MEDS: cefTRIAXone SODIUM 2,000 MG in DEXTROSE 5% 50 ML IV SCH (20:27)
[2019-01-15] MEDS: TAMSULOSIN HCL 0.4 MG CAP PO SCH (21:16)
[2019-01-16 05:14] LABS: Hematocrit (blood only) 34.7 % (42-52); Hemoglobin 11.7 g/dL (14.0-18.0); Mean Corpuscular Hemoglobin 30.2 pg (25-34); Mean Corpuscular Hgb Conc 33.7 g/dL (32-36); Mean Corpuscular Volume 89.7 fL (80-100); Platelet Count 109 K/uL (130-400); RDW Coefficient of Variation 12.6 % (11.5-14.5); RDW Standard Deviation 41.1 fL (36.4-46.3); Red Blood Count 3.87 M/uL (4.7-6.1); White Blood Count 8.28 K/uL (4.8-10.8)
[2019-01-16 05:50] LABS: BUN Creatinine Ratio 11.6 (10-20); Calcium 8.2 mg/dl (8.5-10.1); Creatinine Clr Calc Pharmacy 40.2 ml/min; Est GFR (African American) 46.4; Potassium 4.3 mmol/L (3.5-5.1)
[2019-01-16] MEDS: PANTOprazole 40 MG TAB PO SCH (08:31)
[2019-01-16] MEDS: FINASTERIDE 5 MG TAB PO SCH (08:31)
[2019-01-16] MEDS: INSULIN ASPART 100 UNITS/ML 3 ML PEN SC SCH ×4 (08:33→20:39)
[2019-01-16] MEDS ORDERED: ASPIRIN 81 MG ECTAB PO SCH (09:00)
--- NOTE | 2019-01-16 13:04 | Hospitalist Progress Note ---
Date of Service January 16, 2019 Assessment & Plan (1) Hydronephrosis concurrent with and due to calculi of kidney and ureter: Moderate to Severe Left Hydroureteronephrosis Present on admission with intermittent lower abdominal pain for the past few weeks History of kidney stones and lithotripsy CT showed at least 4 obstructing calculi in the mid left ureter (the largest 2 stones each measure 11 mm) at the level of L4. This causes moderate to severe left hydroureteronephrosis. There are additional nonobstructing calculi seen bilaterally, with staghorn calculi noted on the right. Urology on board S/P day 1 cystoscopy, Left Retrograde Pylography, Laser Cystolithopaxy, Left Ureteral Stent Placement(Left) performed today by Dr. Morillo Bladder stone fragmented and removed by urology on 01/15/19 Urine cx no growth Will discontinued IV Rocephin Continue flomax and finasteride Will discharge on Keflex x 7 days as per urology Continue Morphine, oxycodone and phenazopyridine prn Advised pt to increase fluid intake while in the hospital to help him urinate Will need to follow with urology Ok from urology standpoint to discharge home Continue monitor closely Urinary retention Due to postop bladder stone removal Urology recommended to place driscoll cath Will discharge home with the driscoll Continue tamsulosin + finasteride indefinitely Follow up with urology outpatient next week (2) Acute renal failure: Due to moderate to Severe Left Hydroureteronephrosis Creatinine on admission 2.1 (Baseline creatinine btw 1.1 to 1.2) Creatinine improved from 2.2 to 1.6 Received IVF Avoid nephrotoxic agents Will check BMP in 1 week (3) Diabetes mellitus, type II: A1c: 6.9 in 10/2018 Continue to hold metformin Novolog sliding scale per protocol Monitor BS (4) GERD (gastroesophageal reflux disease): Continue PPI (5) Stroke: Will resume aspirin once hematuria resume DVT Prophylaxis SCD (Hematuria) CODE STATUS Full Code Disposition Will discharge home with driscoll cath Follow up with urology outpatient Discharge home tomorrow Subjective Pt was seen and examined Lying in bed with no distress with family at bedside Pt said that he feels fine Driscoll cath was out this morning Nurse said that pt only urinated about 100cc urine so far Nurse said that he was mostly hematuria does not want to take him room today Denies any chest pain, palpitation, dizziness and SOB Physical Exam 2 Physical Exam: General- No acute distress Head- atraumatic Eyes- PERRL, EOMI, ENT- oropharynx clear Neck- supple, no JVD Lungs- clear to auscultation Heart- regular rhythm; no murmur Abdomen- normal bowel sounds, soft, nontender Extremities- no calf tenderness Neuro- alert, oriented x 3; PERRL, EOMI; no facial palsy; no dysarthria Skin- warm & dry Results & Data Vital Signs (Past 12 Hours) Vital Signs Temp Pulse Resp BP Pulse Ox 01/16/19 07:15 36.8 C 87 16 138/75 97 01/16/19 02:57 37.2 C 104 H 16 121/67 94 (1) Acute renal failure Acute renal failure type: unspecified Qualified Code(s): N17.9 - Acute kidney failure, unspecified
--- NOTE | 2019-01-16 14:17 | Urology Progress Note ---
Date of Service January 16, 2019 Assessment & Plan (1) Hydronephrosis concurrent with and due to calculi of kidney and ureter: A/P 78 yo male POD#1 s/p L stent, cystolithopaxy. Improving Cr s/p. Retention not overly surprising postop considering presence of bladder stone. Continue tamsulosin + finasteride indefinitely, insert 18 fr coude catheter. Will leave in place ~ 1 week before retrying TOV as an outpatient. Leg bag training. Will try to avoid TURP in the future if possible considering the other surgeries which need to take place, next of which will be L uscope, laser litho and stent exchange. Will arrage for outpatient TOV and f/u to schedule for surgery. Patient and vocalize understanding of the plan, stable for DC home today with driscoll from a perspective with analgesics and antibiotic coverage. Thank you for allowing us to participate in this patient's acute care. Please contact our service with any questions or concerns. (2) Bladder calculus: Subjective 78 yo male POD#1 s/p cystolithopaxy, L stent. TOV undertaken this AM - low volume voids with SP pressure, main c/o. No stent bother noted yet. Intraop findings reviewed, in room. Cr improved s/p stent, down to 1.6. Review of Systems Constitutional: no fever and no chills Eyes: no diplopia Ear, Nose, Mouth, Throat: no ear trauma Respiratory: no hemoptysis Cardiovascular: no chest pain Gastrointestinal: + abdominal pain and + bloating Genitourinary: + difficulty urinating and + urinary hesitancy Integumentary: no acne and no boil Neurologic: no paralysis Psychiatric: no hopelessness Allergy / Immunological: no tongue swelling Physical Exam Constitutional: + obese; no acute distress Eyes: eyes not dysmorphic ENMT: Ears: no external ear abnormality Neck: trachea midline; no anterior neck swelling Respiratory: no respiratory distress and does not use accessory muscles Cardiovascular: Vessels: radial pulses present Gastrointestinal (Abdomen): Inspection/Auscultation: abdomen not distended Percussion/Palpation: abdomen soft; abdomen nontender Musculoskeletal: Head/Neck/Chest: normocephalic and neck supple Skin: normal turgor Neurologic: awake; not obtunded Psychiatric: Orientation: oriented x 3 Lymphatic: no lymphadenopathy Results & Data Vital Signs (Past 12 Hours) Vital Signs Temp Pulse Resp BP Pulse Ox 01/16/19 13:12 36.4 C L 85 16 118/71 98 01/16/19 07:15 36.8 C 87 16 138/75 97 01/16/19 02:57 37.2 C 104 H 16 121/67 94 Laboratory Results Laboratory Results - last 48 hr 01/14/19 01/14/19 01/14/19 14:13 14:13 14:50 WBC 8.05 RBC 4.49 L Hgb 13.8 L Hct 41.0 L MCV 91.3 MCH 30.7 MCHC 33.7 RDW Std Deviation 43.0 RDW Coeff of Opal 12.8 Plt Count 139 MPV 10.6 H Immature Gran % (Auto) 0.7 Neut % (Auto) 65.7 Lymph % (Auto) 15.7 [place] % (Auto) 17.3 Eos % (Auto) 0.5 Baso % (Auto) 0.1 Immature Gran # (Auto) 0.06 H Neut # (Auto) 5.29 Lymph # (Auto) 1.26 [place] # (Auto) 1.39 H Eos # (Auto) 0.04 Baso # (Auto) 0.01 PT INR APTT PTT Ratio Sodium 137 Potassium 4.4 Chloride 106 Carbon Dioxide 25 Anion Gap 6.0 BUN 25 H Creatinine 2.14 H Est Cr Clr Drug Dosing 30.6 Est GFR ( Amer) 33.4 Est GFR (Non-Af Amer) 28.8 BUN/Creatinine Ratio 11.4 Glucose 118 H POC Glucose Calcium 9.1 Total Bilirubin 0.6 AST 17 ALT 18 Alkaline Phosphatase 86 Total Protein 7.5 Albumin 3.3 L Globulin 4.2 H Albumin/Globulin Ratio 0.8 L Lipase 139 Urine Color Yellow Urine Appearance Cloudy A Urine pH 5.0 Ur Specific [place] 1.021 Urine Protein Trace H Urine Glucose (UA) Trace H Urine Ketones Negative Urine Blood 2+ H Urine Nitrite Negative Urine Bilirubin Negative Urine Urobilinogen Negative Ur Leukocyte Esterase 1+ H Urine WBC (Auto) 10-30 H Urine RBC (Auto) 0-4 U Hyaline Cast (Auto) 1-5 U Epithel Cells (Auto) >30 H Urine Bacteria (Auto) Negative Ur Renal Epithelial Cell 5-10 H 01/14/19 01/15/19 01/15/19 20:43 05:04 05:04 WBC 7.85 RBC 3.92 L Hgb 12.0 L Hct 35.1 L MCV 89.5 MCH 30.6 MCHC 34.2 RDW Std Deviation 41.1 RDW Coeff of Opal 12.7 Plt Count 118 L MPV 9.9 Immature Gran % (Auto) Neut % (Auto) Lymph % (Auto) [place] % (Auto) Eos % (Auto) Baso % (Auto) Immature Gran # (Auto) Neut # (Auto) Lymph # (Auto) [place] # (Auto) Eos # (Auto) Baso # (Auto) PT Cancelled INR Cancelled APTT Cancelled PTT Ratio Cancelled Sodium Potassium Chloride Carbon Dioxide Anion Gap BUN Creatinine Est Cr Clr Drug Dosing Est GFR ( Amer) Est GFR (Non-Af Amer) BUN/Creatinine Ratio Glucose POC Glucose 180 H Calcium Total Bilirubin AST ALT Alkaline Phosphatase Total Protein Albumin Globulin Albumin/Globulin Ratio Lipase Urine Color Urine Appearance Urine pH Ur Specific [place]ien Urine Protein Urine Glucose (UA) Urine Ketones Urine Blood Urine Nitrite Urine Bilirubin Urine Urobilinogen Ur Leukocyte Esterase Urine WBC (Auto) Urine RBC (Auto) U Hyaline Cast (Auto) U Epithel Cells (Auto) Urine Bacteria (Auto) Ur Renal Epithelial Cell 01/15/19 01/15/19 01/15/19 05:04 05:56 06:36 WBC RBC Hgb Hct MCV MCH MCHC RDW Std Deviation RDW Coeff of Opal Plt Count MPV Immature Gran % (Auto) Neut % (Auto) Lymph % (Auto) [place] % (Auto) Eos % (Auto) Baso % (Auto) Immature Gran # (Auto) Neut # (Auto) Lymph # (Auto) [place] # (Auto) Eos # (Auto) Baso # (Auto) PT 10.7 INR 1.0 APTT 30.2 PTT Ratio 1.1 Sodium 136 Potassium 4.9 Chloride 107 Carbon Dioxide 24 Anion Gap 5.0 BUN 24 H Creatinine 2.29 H Est Cr Clr Drug Dosing 28.6 Est GFR ( Amer) 30.8 Est GFR (Non-Af Amer) 26.5 BUN/Creatinine Ratio 10.6 Glucose 161 H POC Glucose 155 H Calcium 8.3 L Total Bilirubin AST ALT Alkaline Phosphatase Total Protein Albumin Globulin Albumin/Globulin Ratio Lipase Urine Color Urine Appearance Urine pH Ur Specific [place] Urine Protein Urine Glucose (UA) Urine Ketones Urine Blood Urine Nitrite Urine Bilirubin Urine Urobilinogen Ur Leukocyte Esterase Urine WBC (Auto) Urine RBC (Auto) U Hyaline Cast (Auto) U Epithel Cells (Auto) Urine Bacteria (Auto) Ur Renal Epithelial Cell 01/15/19 01/15/19 01/15/19 12:06 17:03 20:03 WBC RBC Hgb Hct MCV MCH MCHC RDW Std Deviation RDW Coeff of Opal Plt Count MPV Immature Gran % (Auto) Neut % (Auto) Lymph % (Auto) [place] % (Auto) Eos % (Auto) Baso % (Auto) Immature Gran # (Auto) Neut # (Auto) Lymph # (Auto) [place] # (Auto) Eos # (Auto) Baso # (Auto) PT INR APTT PTT Ratio Sodium Potassium Chloride Carbon Dioxide Anion Gap BUN Creatinine Est Cr Clr Drug Dosing Est GFR ( Amer) Est GFR (Non-Af Amer) BUN/Creatinine Ratio Glucose POC Glucose 158 H 155 H 186 H Calcium Total Bilirubin AST ALT Alkaline Phosphatase Total Protein Albumin Globulin Albumin/Globulin Ratio Lipase Urine Color Urine Appearance Urine pH Ur Specific [place] Urine Protein Urine Glucose (UA) Urine Ketones Urine Blood Urine Nitrite Urine Bilirubin Urine Urobilinogen Ur Leukocyte Esterase Urine WBC (Auto) Urine RBC (Auto) U Hyaline Cast (Auto) U Epithel Cells (Auto) Urine Bacteria (Auto) Ur Renal Epithelial Cell 01/16/19 01/16/19 01/16/19 04:42 04:42 08:19 WBC 8.28 RBC 3.87 L Hgb 11.7 L Hct 34.7 L MCV 89.7 MCH 30.2 MCHC 33.7 RDW Std Deviation 41.1 RDW Coeff of Opal 12.6 Plt Count 109 L MPV 10.0 Immature Gran % (Auto) Neut % (Auto) Lymph % (Auto) [place] % (Auto) Eos % (Auto) Baso % (Auto) Immature Gran # (Auto) Neut # (Auto) Lymph # (Auto) [place] # (Auto) Eos # (Auto) Baso # (Auto) PT INR APTT PTT Ratio Sodium 137 Potassium 4.3 Chloride 105 Carbon Dioxide 27 Anion Gap 5.0 BUN 19 H Creatinine 1.63 H D Est Cr Clr Drug Dosing 40.2 Est GFR ( Amer) 46.4 Est GFR (Non-Af Amer) 40.0 BUN/Creatinine Ratio 11.6 Glucose 150 H POC Glucose 161 H Calcium 8.2 L Total Bilirubin AST ALT Alkaline Phosphatase Total Protein Albumin Globulin Albumin/Globulin Ratio Lipase Urine Color Urine Appearance Urine pH Ur Specific [place] Urine Protein Urine Glucose (UA) Urine Ketones Urine Blood Urine Nitrite Urine Bilirubin Urine Urobilinogen Ur Leukocyte Esterase Urine WBC (Auto) Urine RBC (Auto) U Hyaline Cast (Auto) U Epithel Cells (Auto) Urine Bacteria (Auto) Ur Renal Epithelial Cell 01/16/19 11:55 WBC RBC Hgb Hct MCV MCH MCHC RDW Std Deviation RDW Coeff of Opal Plt Count MPV Immature Gran % (Auto) Neut % (Auto) Lymph % (Auto) [place] % (Auto) Eos % (Auto) Baso % (Auto) Immature Gran # (Auto) Neut # (Auto) Lymph # (Auto) [place] # (Auto) Eos # (Auto) Baso # (Auto) PT INR APTT PTT Ratio Sodium Potassium Chloride Carbon Dioxide Anion Gap BUN Creatinine Est Cr Clr Drug Dosing Est GFR ( Amer) Est GFR (Non-Af Amer) BUN/Creatinine Ratio Glucose POC Glucose 215 H Calcium Total Bilirubin AST ALT Alkaline Phosphatase Total Protein Albumin Globulin Albumin/Globulin Ratio Lipase Urine Color Urine Appearance Urine pH Ur Specific [place] Urine Protein Urine Glucose (UA) Urine Ketones Urine Blood Urine Nitrite Urine Bilirubin Urine Urobilinogen Ur Leukocyte Esterase Urine WBC (Auto) Urine RBC (Auto) U Hyaline Cast (Auto) U Epithel Cells (Auto) Urine Bacteria (Auto) Ur Renal Epithelial Cell PG Care Time/CCT Total # of Minutes Spent Total Time Spent with Patient: Total time spent is greater than 50% in coordination of care (as documented) at patient's floor/unit and/or counseling patient:
[2019-01-16] MEDS ORDERED: LIDOCAINE 2% JELLY 5 ML TUBE EXT ONE (14:52)
[2019-01-16] MEDS: cephALEXin 500 MG CAP PO SCH ×2 (16:07→20:38)
[2019-01-16] MEDS: TAMSULOSIN HCL 0.4 MG CAP PO SCH (20:38)
[2019-01-16 23:08] VITALS: O2SAT 94
[2019-01-17 07:24] VITALS: BP 147/77; PULSE 97; TEMP 98.2
[2019-01-17] MEDS: cephALEXin 500 MG CAP PO SCH (08:22)
[2019-01-17] MEDS: PANTOprazole 40 MG TAB PO SCH (08:22)
[2019-01-17] MEDS: FINASTERIDE 5 MG TAB PO SCH (08:22)
[2019-01-17] MEDS: INSULIN ASPART 100 UNITS/ML 3 ML PEN SC SCH ×2 (08:25→13:08)
--- NOTE | 2019-01-17 14:53 | Discharge Summary ---
Date of Service January 17, 2019 Admission HPI Per Admitting Provider Pt is 78 y/o M with PMH kidney stones and lithotripsy, DM II, GERD, stroke presented to ER with c/o lower abdominal pain x 2 months. Pt c/o intermittent lower abdominal pain for past 2 months. States today was tired of the pain so came to be evaluated. Has been using 1 tab ibuprofen 2-3 times a week for the pain. Denies fever/chills, diaphoresis, N/V/D/C, COFFEY, dizziness, syncope, vision changes, neck pain, CP, SOB, orthopnea, palpitations, cough, sore throat, choking, otalgia, rhinorrhea, back pain, paresthesias, weakness, extremity weakness, extremity edema, rashes, dysuria, hematuria, urinary retention, urin samm frequency. Admission Exam Per Admitting Provider General: no distress, WDWN Head: normocephalic, atraumatic Eyes: PERRL, EOM's intact, conjunctiva non-injected, anicteric ENT: normal inspection external ears, nose, mucous membranes moist Neck: supple, trachea midline Lungs: clear, no respiratory distress, no wheezing/rhonchi/rales CV: RRR, no murmur, no pretibial edema Abd: normal BS, soft, + tenderness to RLQ, LLQ, suprapubic Ext: no cyanosis, no calf tenderness Neuro: A&O x 3, no focal deficits noted, normal affect Skin: warm, dry Principal Diagnosis Moderate to severe left hydroureteronephrosis Bilateral nephrolithiasis with Obstructive nephrolithiasis on Left side Left ureteral stent placement Acute Kidney Injury Discharge Exam General: Well nourished, well hydrated , average body habitus, no acute d istress and not ill appearing Eyes: PERRL, conjunctivae normal, not pale, anicteric sclerae, EOM intact bilaterally ENMT: External ear and nose normal, oropharynx normal Neck: Normal visual inspection, no tracheal deviation, no swelling noted Respiratory: Normal respiratory effort, no respiratory distress, lungs clear to auscultation, no crackles and no wheezes Cardiovascular: Pulse is RRR. Heart Sounds: normal S1 and normal S2; no murmurs. Vessels: normal peripheral pulses Extremities: no pedal edema Chest (Breasts): Chest: normal inspection of chest Gastrointestinal (Abdomen): Abdomen is not distended, soft, non-tender to palpation, no guarding, no palpable hepatosplenomegaly, normal bowel sounds Musculoskeletal: No cyanosis or clubbing, all extremities motor strength 5/5 Genitourinary: Skin: No rash noted on gross inspection, No ulcers noted Neurologic: Alert and oriented x 3, No focal weakness, sensation grossly intact Psychiatric: Alert and oriented x 3, euthymic affect, no depressed affect Lymphatic: No cervical and axillary lymphadenopathy Discharge Data Allergies Allergy/AdvReac Type Severity Reaction Status Date / Time lactose AdvReac Gastrointestinal Unverified 01/14/19 15:43 Upset Consultations 01/14/19 16:41 ED Decision to Admit Stat 01/14/19 19:03 Consult Urology Routine Procedures Performed Operation Date: 01/15/19 07:30 Actual Procedures p Cystoscopy, Left Retrograde Pylography, Laser Cystolithopaxy,(Left) - David Morillo MD s Left Ureteral Stent Placement(Left) - David Morillo MD Ordered Studies 01/14/19 15:00 CT abd pelvis wo con Stat 1. There are at least 4 obstructing calculi in the mid left ureter (the largest 2 stones each measure 11 mm) at the level of L4. This causes moderate to severe left hydroureteronephrosis. 2. There are additional nonobstructing calculi seen bilaterally, with staghorn calculi noted on the right. 3. Moderate colonic diverticulosis without CT evidence of acute diverticulitis. 4. There is a large bladder calculus. 01/15/19 07:42 FL retrograde includes kub Routine Fluoroscopic images from left retrograde exam with ureteral stent insertion Hospital Course (1) Hydronephrosis concurrent with and due to calculi of kidney and ureter: Moderate to Severe Left Hydroureteronephrosis Present on admission with intermittent lower abdominal pain for the past few weeks History of kidney stones and lithotripsy CT showed at least 4 obstructing calculi in the mid left ureter (the largest 2 stones each measure 11 mm) at the level of L4. This causes moderate to severe left hydroureteronephrosis. There are additional nonobstructing calculi seen bilaterally, with staghorn calculi noted on the right. S/P cystoscopy, Left Retrograde Pylography, Laser Cystolithopaxy, Left Ureteral Stent Placement(Left) performed 01/15/[address] Morillo Bladder stone fragmented and removed by urology on 01/15/19 Urine cx no growth Continue flomax and finasteride Discharged on Keflex x 7 days as per urology Will need to follow with urology Continue monitor closely Urinary retention Due to postop bladder stone removal Urology recommended to place driscoll cath Will discharge home with the driscoll Continue tamsulosin + finasteride indefinitely Follow up with urology outpatient next week (2) Acute renal failure: Due to moderate to Severe Left Hydroureteronephrosis Creatinine on admission 2.1 (Baseline creatinine btw 1.1 to 1.2) Creatinine improved from 2.2 to 1.6 Received IVF Avoid nephrotoxic agents Will check [facility] on 01/21/2019 (3) Diabetes mellitus, type II: A1c: 6.9 in 10/2018 Metformin was held while in patient and managed with Novolog sliding scale per protocol May resume metformin on discharge with monitoring of kidney function (4) GERD (gastroesophageal reflux disease): Continue PPI (5) Stroke: Continue ASA CODE STATUS Full Code Disposition Discharged home with driscoll cath after receiving education on driscoll management at home Follow up with urology outpatient Discharged home Total Time Total Time Spent Total Time Spent (In Minutes): 35 Discharge Plan Discharge Items Patient Disposition: Home - Self-Care Reason For Visit: OBSTRUCTING KIDNEY STONE Discharge Diagnosis: Moderate to severe left hydroureteronephrosis Obstructive nephrolithiasis Left ureteral stent placement Acute Kidney Injury Condition on Discharge: Good Activity: Resume your previous activity Non-emergency contact: Primary Care Provider and Urologist Call non-emergency contact if: you have any medication questions Follow-up/Referrals: David Morillo MD [Physician] - Nic Harley DO [Primary Care Provider] - Diet: Carb Consistent or DM2 Ambulatory Orders: Basic Metabolic Panel (Routine) Timeframe: 20190121 Location: Determined by Patient Ordered By: Nikki Herrera Attending Provider Instructions: Mr Hewitt. You came to the hospital for abdominal pain that has worsened over time. Evaluation showed you had multiple kidney stones which were obstructing urine outflow in your left kidney causing kidney injury. You had a stent put in your left ureter for that Your kidney function started to improve. You will need to continue using the driscoll catheter as instructed until you follow up with the Urologist in the clinic. Please do a blood test called [facility] on thursday01/21/19 to monitor your kidney function. Please complete the antibiotic treatment You were started on two medications (tamsulosin and finasteride) for the kidney stone obstruction according to urologist recommendation. Please continue taking these. It was a pleasure taking care of you Pending Studies at Discharge: No Stand-Alone Forms: Call Back Authorization, My [facility], Smoking Cessation Medications and DC Order Prescriptions: New tamsulosin 0.4 mg Capsule 0.4 mg PO HS 30 Days Qty: 30 RF: 0 cephalexin 500 mg Capsule 500 mg PO BID 7 Days Qty: 14 RF: 0 finasteride [Proscar] 5 mg Tablet 5 mg PO QAM 30 Days Qty: 30 RF: 0 Continued omeprazole 20 mg capsule,delayed release(DR/EC) 20 mg PO DAILY RF: 0 metformin 500 mg tablet extended release 24 hr 500 mg PO BIDM RF: 0 aspirin 81 mg Tablet,Delayed Release (Dr/Ec) 81 mg PO DAILY RF: 0 Discharge Orders: Discharge Order (Routine); Ordered 01/17/19 Ordered By: Nikki Celaya/Other Patient Handouts: Catheter Indwelling Urinary Dc, Leg Bag Care Dc Admission Data Admit Date/Time: 01/14/19 17:39 Attending Provider: Nikki Kirk I. Admit Provider: Gwyn Allen Primary Care Provider: Nic Harley Other Providers: Gwyn Allen ; David Morillo I. ; Bc Araya Other Interventions: Discharge Summary Assessment (RN) Last Done: 01/17/19 15:08 DC Date/Time DO NOT enter until pt leaves facility: 01/17/19 16:55
[2019-01-24 08:12] LABS: Component 2 DNR
== END 2019-01-17 16:55 | disposition home or self-care (01) | DRG 661 ==
LOC: ED 13:42 → SUATTDRO 17:39 → 3W 17:39